=== PATIENT | female | born 1980 | race Caucasian/White ===

== ENCOUNTER 2018-06-01 00:27 | Emergency (ER) | payer OTHER ==
[~2018-06-01] VITALS: Ht 170.2 cm; Wt 127.9 kg
[2018-06-01] MEDS ORDERED: INTESTINEX680 M1 PO (14:20)
[2018-06-01] MEDS ORDERED: PEPCID40 MG PO (14:20)
== END 2018-06-01 15:58 | disposition home or self-care (01) ==
LOC: ER 00:27
DX: K52.9 Noninfective gastroenteritis and colitis, unspecified (principal); E86.0 Dehydration